=== PATIENT | male | born 1955 | race Caucasian/White ===

== ENCOUNTER 2018-05-09 19:58 | Emergency (ER) | payer MEDICAID ==
[2018-05-09 22:44] VITALS: BP 145/94
== END 2018-05-09 22:44 | disposition home or self-care (01) ==
LOC: ED 19:58
DX: S09.90XA Unspecified injury of head, initial encounter (principal); S00.11XA Contusion of right eyelid and periocular area, initial encounter; E11.9 Type 2 diabetes mellitus without complications; Z88.0 Allergy status to penicillin; W22.8XXA Striking against or struck by other objects, initial encounter; Y93.89 Activity, other specified; Y92.89 Other specified places as the place of occurrence of the external cause; Y99.8 Other external cause status